=== PATIENT | female | born 1965 | race African-American/Black ===

== ENCOUNTER 2021-05-05 10:23 | Day surgery (SDC) | payer BC, SELFPAY ==
[2021-05-02 17:41] LABS: PROTHROMBIN TIME 10.2 SECS (9.5-12.5)
[2021-05-02 17:43] LABS: BASOPHILS # (AUTO) 0.1 K/uL (0.0-0.2); BASOPHILS % (AUTO) 0.7 % (0.0-2.0); EOSINOPHILS % (AUTO) 0.6 % (0.0-4.0); HEMATOCRIT 40.9 % (36-48); HEMOGLOBIN 13.9 g/dL (12.0-16.0); LYMPHOCYTES # (AUTO) 1.9 K/uL (1.0-5.5); LYMPHOCYTES % (AUTO) 24.7 % (20.5-51.5); MEAN CORPUSCULAR HEMOGLOBIN 33 pg (27-31); MEAN CORPUSCULAR HGB CONC 34 % (32-36); MEAN CORPUSCULAR VOLUME 97 fL (79.0-98.0); MONOCYTES # (AUTO) 0.8 K/uL (0.0-1.0); MONOCYTES % (AUTO) 9.8 % (1.7-9.3); NEUTROPHILS # (AUTO) 5.1 K/uL (1.8-7.7); NEUTROPHILS % (AUTO) 64.2 % (40.0-70.0); PLATELET COUNT (AUTO) 181 K/uL (130-430); RED BLOOD CELL COUNT(AUTO) 4.24 MIL/uL (4.2-6.2); WHITE BLOOD COUNT (AUTO) 7.9 K/uL (4.8-10.8)
[2021-05-02 17:53] LABS: ALBUMIN 4.2 g/dL (3.4-4.8); CALCIUM 9.8 mg/dL (8.4-11.0); CREATININE 0.92 mg/dL (0.55-1.30); POTASSIUM 4.1 mmol/L (3.5-5.1); TOTAL BILIRUBIN 0.4 mg/dL (0.0-1.0)
[~2021-05-05] VITALS: Ht 172.7 cm; Wt 74.8 kg
[2021-05-05] MEDS ORDERED: DEXAMETHASONE SOD PHOSPHATE 4 MG/ML VIAL IVP ONE (10:24)
[2021-05-05] MEDS ORDERED: KETOROLAC TROMETHAMINE 30 MG VIAL IVP ONE ×2 (10:24)
[2021-05-05] MEDS ORDERED: NS IRRIG SOLN 1000 ML IR ONE (10:24)
[2021-05-05] MEDS ORDERED: LEVOFLOXACIN IN DEXTROSE 5 % 500 MG/100 ML PIGGYBACK IV ONE (10:24)
[2021-05-05] MEDS ORDERED: ONDANSETRON HCL 4 MG/2 ML VIAL IVP ONE (10:24)
[2021-05-05] MEDS ORDERED: LIDOCAINE/EPI 1% 1:100000 20 ML VIAL INJ ONE (10:24)
[2021-05-05] MEDS ORDERED: WATER FOR IRRIGATION,STERILE 1,000 ML IRRIG.SOLN IR ONE (10:24)
[2021-05-05] MEDS ORDERED: PROPOFOL 200MG/ 20ML VIAL (DIPRIVAN) IV ONE (10:24)
[2021-05-05] MEDS ORDERED: MIDAZOLAM HCL 5 MG/5 ML VIAL IVP ONE (10:24)
[2021-05-05] MEDS ORDERED: HYDROmorphone 2 MG/ML VIAL IVP ONE (10:24)
[2021-05-05] MEDS ORDERED: SEVOFLURANE 15 MIN GAS INH ONE (10:24)
[2021-05-05] MEDS ORDERED: KETOROLAC TROMETHAMINE 30 MG VIAL IVP PRN (13:45)
[2021-05-05] MEDS ORDERED: ONDANSETRON HCL 4 MG/2 ML VIAL IVP PRN (13:45)
[2021-05-05] MEDS ORDERED: MEPERIDINE 50 MG/ML VIAL IVP PRN (13:45)
[2021-05-05] MEDS ORDERED: LR 1,000 ML IV SCH (13:45)
[2021-05-05] MEDS ORDERED: MEPERIDINE HCL/PF 25 MG/ML DISP.SYRIN IVP PRN (13:45)
[2021-05-05 17:27] VITALS: BP_SYST 156
== END 2021-05-05 17:15 | disposition home or self-care (01) ==
LOC: SDS 10:23 → SMU 10:25 → SDS 17:15
PROVIDERS: ATTEND Surgery
DX: R22.2 Localized swelling, mass and lump, trunk (principal); L73.8 Other specified follicular disorders; Z88.1 Allergy status to other antibiotic agents; Z88.5 Allergy status to narcotic agent; Z79.01 Long term (current) use of anticoagulants; Z79.899 Other long term (current) drug therapy
CPT/HCPCS: 11406; 36415; 71046; 80053; 85025; 85610; 85730; 87426; 88307; 93005; J1100; J1170; J1885; J1956; J2250; J2405; J2704